=== PATIENT | male | born 1970 | race Two or more races ===

== ENCOUNTER 2024-12-21 12:15 | Emergency (ER) | payer BC ==
[~2024-12-21] VITALS: Ht 165.1 cm; Wt 64.5 kg
[2024-12-21 12:18] VITALS: BP 122/64; PULSE 58; RESP 18; TEMP 98; O2SAT 99
[2024-12-21] MEDS ORDERED: CEPH-558 PO (13:49)
[2024-12-21] MEDS ORDERED: IBUP-1492 PO (13:49)
== END 2024-12-21 14:00 | disposition home or self-care (01) ==
LOC: EMS 12:15
DX: S62.662A Nondisplaced fracture of distal phalanx of right middle finger, initial encounter for closed fracture (principal); W23.0XXA Caught, crushed, jammed, or pinched between moving objects, initial encounter; Y93.89 Activity, other specified; Y92.89 Other specified places as the place of occurrence of the external cause; Y99.8 Other external cause status
CPT/HCPCS: 11740; 99284; 73140-TC; Z7502